=== PATIENT | female | born 1960 | race Two or more races ===

== ENCOUNTER 2017-09-27 19:44 | Emergency (ER) | payer OTHER ==
[~2017-09-27] VITALS: Ht 157.5 cm; Wt 65.8 kg
[~2017-09-27 19:44] MED LIST: CALTRATE 600 +1 EACH PO; PERCOCET 5-3251 EACH PO; SYNTHROID88 MCG PO; ZANTAC150 M3 PO
[2017-09-27] MEDS ORDERED: LIPITOR20 MG (20:11)
== END 2017-09-27 22:21 | disposition home or self-care (01) ==
LOC: ER 19:44
DX: L03.116 Cellulitis of left lower limb (principal)

== ENCOUNTER 2023-12-25 08:47 | Outpatient (CLI) | payer OTHER ==
[~2023-12-25 08:47] MED LIST changes: +LIPITOR20 MG
== END 2023-12-25 08:49 | disposition home or self-care (01) ==
LOC: SONOGRAMA 08:47
PROVIDERS: ATTEND Internal Medicine
DX: E04.2 Nontoxic multinodular goiter (principal)

== ENCOUNTER 2024-01-09 10:27 | Outpatient (CLI) | payer OTHER | END 2024-01-09 10:30 | disposition home or self-care (01) | LOC: RAD 10:27 | PROVIDERS: ATTEND Physical Medicine & Rehabilitation | DX: M54.2 Cervicalgia (principal); M25.511 Pain in right shoulder ==